=== PATIENT | female | born 1965 | race Caucasian/White ===

== ENCOUNTER → 2023-06-04 16:03 | Outpatient (REF) | payer BC, SELFPAY | LOC: MRI 3T 16:03 | PROVIDERS: ATTENDING PHYSICIAN Surgery; FAMILY PHYSICIAN Family Medicine | DX: R92.8 Other abnormal and inconclusive findings on diagnostic imaging of breast (principal); Z85.3 Personal history of malignant neoplasm of breast | CPT/HCPCS: 77049; A9585 ==

== ENCOUNTER → 2023-11-11 11:33 | Outpatient (REF) | payer BC, SELFPAY | LOC: WDC 11:33 | PROVIDERS: ATTENDING PHYSICIAN Surgery; FAMILY PHYSICIAN Family Medicine | DX: C50.312 Malignant neoplasm of lower-inner quadrant of left female breast (principal); Z85.3 Personal history of malignant neoplasm of breast; Z12.31 Encounter for screening mammogram for malignant neoplasm of breast | CPT/HCPCS: 77063; 77067; 77080 ==

== ENCOUNTER → 2024-07-14 07:46 | Outpatient (REF) | payer BC, SELFPAY | LOC: MRI 3T 07:46 | PROVIDERS: ATTENDING PHYSICIAN Nurse Practitioner Adult Health; FAMILY PHYSICIAN Family Medicine | DX: Z91.89 Other specified personal risk factors, not elsewhere classified (principal); Z80.3 Family history of malignant neoplasm of breast | CPT/HCPCS: 77049; A9585 ==